=== PATIENT | male | born 1950 | race Caucasian/White ===

== ENCOUNTER → 2017-09-15 | Outpatient (CLI) | payer MEDICARE, OTHER ==
--- NOTE | 2017-09-15 11:20 | XR ---
EXAMINATION TYPE: XR femur LT DATE OF EXAM: 09/15/2017 COMPARISON: NONE HISTORY: Pain TECHNIQUE: 4 views submitted FINDINGS: Postsurgical changes noted there are vascular calcifications. Soft tissue calcification or ossification noted. Deformity of the distal femurs compatible with remote trauma or surgery. Arthropa thy of the knee joint. Arthropathy of the patellofemoral joint. Arthropathy of the hip joint. IMPRESSION: 1. Findings suggest previous trauma and surgery with no definite acute process.
== END | disposition home or self-care (01) ==
LOC: RADXRMAIN 10:41
PROVIDERS: ATTEND Physician Assistant
DX: S72.92XA Unspecified fracture of left femur, initial encounter for closed fracture (principal)

== ENCOUNTER 2019-11-09 08:14 | Observation (INO) | payer MEDICARE, OTHER ==
[2019-11-09] MEDS ORDERED: IPRATROPIUM 0.5 MG/2.5 ML NEBU INHALATION STA (08:40)
[2019-11-09] MEDS ORDERED: ALBUTEROL NEBULIZED 2.5 MG/3 ML INHALATION STA (08:40)
[2019-11-09] MEDS ORDERED: methylPREDNISolone SOD SUCCI 125 MG/2 ML VIAL IV STA (08:40)
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
[2019-11-09 09:12] LABS: HCT 39.7 % (39.0-53.0); HGB 13.5 gm/dL (13.0-17.5); MCH 31.5 pg (25.0-35.0); MCHC 34.1 g/dL (31.0-37.0); MCV 92.6 fL (80.0-100.0); Mean Platelet Volume 7.3; Platelet Count 184 k/uL (150-450); RBC 4.28 m/uL (4.30-5.90); RDW 13.7 % (11.5-15.5); WBC 5.2 k/uL (3.8-10.6)
[2019-11-09 09:14] LABS: INR 0.9 (<1.2); Partial Thromboplastin Time 25.7 sec (22.0-30.0); Prothrombin Time 9.6 sec (9.0-12.0)
[2019-11-09 09:19] LABS: Albumin 4.2 g/dL (3.5-5.0); Calcium 8.8 mg/dL (8.4-10.2); Magnesium 1.8 mg/dL (1.6-2.3); Potassium 4.6 mmol/L (3.5-5.1); Total Bilirubin 0.5 mg/dL (0.2-1.3); Total Protein 6.9 g/dL (6.3-8.2)
--- NOTE | 2019-11-09 09:23 | XR ---
EXAMINATION TYPE: XR chest 2V DATE OF EXAM: 11/09/2019 COMPARISON: Prior chest x-ray 04/26/2011 HISTORY: Difficulty breathing, shortness of breath TECHNIQUE: Frontal and lateral views of the chest are obtained. FINDINGS: Lung volumes are somewhat lower. There are overlying cardiac leads and the patient is rotat ed. Aorta is dense and likely ectatic. Apical pleural thickening is not significantly changed. There is no focal air space opacity, pleural effusion, or pneumothorax seen. The cardiac silhouette size is within normal limits. There are coronary artery calcifications. Prominent lung volumes suggest un derlying COPD. Mild prominence of interstitium. The osseous structures are intact, there is thoracic spondylosis. IMPRESSION: No acute cardiopulmonary process. Additional findings above.
[2019-11-09 09:31] LABS: Lymphocytes # (M) 1.87 k/uL (1.0-4.8); Monocytes # (M) 0.52 k/uL (0-1.0); Neutrophils % (M) 52 %; Nucleated Red Blood Cells 0 /100 WBC (0-0); Total Cells Counted 100
[2019-11-09 09:53] LABS: D-Dimer 0.71 mg/L FEU (<0.60)
[2019-11-09] MEDS ORDERED: IPRATROPIUM-ALBUTEROL 3 ML NEB INHALATION PRN (10:07)
[2019-11-09] MEDS ORDERED: SODIUM CHLORIDE 0.9% 1,000 ML IV SCH (10:15)
[2019-11-09] MEDS ORDERED: methylPREDNISolone SOD SUCCI 125 MG/2 ML VIAL IV SCH (12:00)
[2019-11-09] MEDS ORDERED: amLODIPine 5 MG TAB PO STA (12:24)
[2019-11-09] MEDS: IPRATROPIUM-ALBUTEROL 3 ML NEB INHALATION SCH ×3 (12:38→20:06)
--- NOTE | 2019-11-09 12:53 | NM ---
EXAMINATION TYPE: NM pul vent and perfuse DATE OF EXAM: 11/09/2019 COMPARISON: NONE HISTORY: Difficulty breathing, shortness of breath for 3 weeks TECHNIQUE: Utilizing inhalation of 33.8 mCi Tc 99m DTPA aerosol and intravenous injection of 5.2 mCi of Tc 99m MAA, ventilation and perfusion images are acquired post injection in multiple projections. FINDINGS: Normal radiotracer distribution is noted in the lungs. There is no evidence of mismatched defects. IMPRESSION: Normal ventilation/perfusion scan
[2019-11-09] MEDS ORDERED: PNEUMOCOCCAL VACC-PNEUMOVAX 23 25 MCG/0.5 ML VIAL IM ONE (15:15)
[2019-11-09] MEDS ORDERED: ACETAMINOPHEN TAB 325 MG TAB PO PRN (15:17)
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
[2019-11-09] MEDS ORDERED: INDOMETHACIN 25 MG CAP PO SCH (17:30)
[2019-11-09] MEDS: FAMOTIDINE 20 MG TAB PO SCH (19:56)
[2019-11-10 06:50] LABS: HCT 42.3 % (39.0-53.0); HGB 14.2 gm/dL (13.0-17.5); MCH 31.1 pg (25.0-35.0); MCHC 33.5 g/dL (31.0-37.0); MCV 92.9 fL (80.0-100.0); Mean Platelet Volume 7.4; Platelet Count 221 k/uL (150-450); RBC 4.55 m/uL (4.30-5.90); RDW 13.9 % (11.5-15.5); WBC 8.5 k/uL (3.8-10.6)
[2019-11-10 07:08] LABS: African American GFR (CKD) >90 (>60 ml/min/1.73 sqM); Anion Gap 6 mmol/L; Blood Urea Nitrogen 23 mg/dL (9-20); Calcium 9.4 mg/dL (8.4-10.2); Carbon Dioxide 23 mmol/L (22-30); Chloride 104 mmol/L (98-107); Glucose 136 mg/dL (74-99); Non-African American GFR(CKD) 78 (>60 ml/min/1.73 sqM); Sodium 133 mmol/L (137-145)
[2019-11-10] MEDS: IPRATROPIUM-ALBUTEROL 3 ML NEB INHALATION SCH ×2 (08:54→12:35)
[2019-11-10] MEDS: HEPARIN SODIUM,PORCINE 5,000 UNIT/ML 1 ML VIAL SQ SCH ×2 (08:57)
[2019-11-10] MEDS: FAMOTIDINE 20 MG TAB PO SCH (08:58)
[2019-11-10] MEDS ORDERED: TAMSULOSIN 0.4 MG CAP.ER.24H PO SCH (09:00)
[2019-11-10] MEDS ORDERED: predniSONE 20 MG TAB PO SCH (09:00)
[2019-11-10] MEDS ORDERED: ASPIRIN 325 MG TAB PO SCH (09:00)
[2019-11-10 10:50] VITALS: RESP 20
[2019-11-10] MEDS ORDERED: METOPROLOL TARTRATE 25 MG TAB PO SCH (11:00)
--- NOTE | 2019-11-10 11:04 | P.DS ---
Providers Date of admission: 11/09/19 10:07 Attending physician: Randolph Monahan Primary care physician: Allison Parker [facility] Course: Patient is a pleasant 68-year-old male with past medical history of COPD quit smoking about a month ago came in with compensative shortness of breath and cough without any sputum production. Patient had any fever chills associated nausea pneumonia patient had a VQ scan which did not show any pulmonary embolism. Patient also has acute renal failure with creatinine of around 1.26 baseline creatinine is not available. Patient blood pressure is bit elevated as well. 11/10/2019 Patient's Tay doing well patient heart rate is elevated TSH is within normal limits there is no PE. Patient creatinine returned to normal. Serum sodium improved. Patient will be discharged todaythe patient will be given prescription for metoprolol for his heart rate PHYSICAL EXAMINATION: GENERAL: The patient is alert and oriented x3, not in any acute distress. Well developed, well nourished. HEENT: Pupils are round and equally reacting to light. EOMI. No scleral icterus. No conjunctival pallor. Normocephalic, atraumatic. No pharyngeal erythema. No thyromegaly. CARDIOVASCULAR: S1 and S2 present. No murmurs, rubs, or gallops. PULMONARY: Chest is clear to auscultation, no wheezing or crackles. ABDOMEN: Soft, nontender, nondistended, normoactive bowel sounds. No palpable organomegaly. MUSCULOSKELETAL: No joint swelling or deformity. EXTREMITIES: No cyanosis, clubbing, or pedal edema. NEUROLOGICAL: Gross neurological examination did not reveal any focal deficits. SKIN: No rashes. Assessment and Plan Plan: -Shortest breathsecondary to COPD exacerbation improved -Hyperemic hyponatremia improved with IV fluids -Anion gap metabolic acidosis secondary to renal failure.improved -Acute renal failure renal azotemia improved with IV fluids. -gastroesophageal reflux disease probable essential hypertension -Benign prostatic atrophy -History of seizures in the past last seizure in 1970 Patient Condition at Discharge: Stable Plan - Discharge Summary Discharge Rx Participant: No New Discharge Prescriptions: New Metoprolol Tartrate [Lopressor] 25 mg PO BID #60 tab Famotidine [Pepcid] 20 mg PO BID #30 tablet predniSONE 10 mg PO DAILY #30 tab Tiotropium Purcell [Spiriva] 1 cap INHALATION DAILY #1 device Budesonide-Formot 160-4.5 Mcg [Symbicort 160-4.5 Mcg Inhaler] 2 puff INHALATION BID #1 inhaler Continue Aspirin 162.5 mg PO DAILY Tamsulosin [Flomax] 0.4 mg PO DAILY Indomethacin [Indocin] 50 mg PO TID-W/MEALS Albuterol Sulfate [Ventolin HFA] 1 - 2 puff INHALATION RT-Q6H PRN PRN Reason: Shortness Of Breath Cider Vinegar [Apple Cider Vinegar] 300 mg PO DAILY Discharge Medication List Albuterol Sulfate [Ventolin HFA] 1 - 2 puff INHALATION RT-Q6H PRN 11/09/19 [History] Aspirin 162.5 mg PO DAILY 11/09/19 [History] Cider Vinegar [Apple Cider Vinegar] 300 mg PO DAILY 11/09/19 [History] Indomethacin [Indocin] 50 mg PO TID-W/MEALS 11/09/19 [History] Tamsulosin [Flomax] 0.4 mg PO DAILY 11/09/19 [History] Budesonide-Formot 160-4.5 Mcg [Symbicort 160-4.5 Mcg Inhaler] 2 puff INHALATION BID #1 inhaler 11/10/19 [Rx] Famotidine [Pepcid] 20 mg PO BID #30 tablet 11/10/19 [Rx] Metoprolol Tartrate [Lopressor] 25 mg PO BID #60 tab 11/10/19 [Rx] Tiotropium Purcell [Spiriva] 1 cap INHALATION DAILY #1 device 11/10/19 [Rx] predniSONE 10 mg PO DAILY #30 tab 11/10/19 [Rx] Follow up Appointment(s)/Referral(s): Seth Cooper MD [Primary Care Provider] - 3 Days Manuel Chanel MD [STAFF PHYSICIAN] - 1 Week Patient Instructions/Handouts: COPD (Chronic Obstructive Pulmonary Disease) (DC), COPD (Chronic Obstructive Pulmonary Disease) (GEN) Discharge Disposition: HOME SELF-CARE
[2019-11-10 13:35] VITALS: BP 158/67; PULSE 90; TEMP 96
== END 2019-11-10 13:38 | disposition home or self-care (01) ==
LOC: EC 08:14 → 3SCARD 10:07 → INTOOBSV 10:07 → 3SCARD 11:46
PROVIDERS: ADMIT Hospitalist; ATTEND Hospitalist
DX: J44.1 Chronic obstructive pulmonary disease with (acute) exacerbation (principal); Z03.818 Encounter for observation for suspected exposure to other biological agents ruled out; E87.1 Hypo-osmolality and hyponatremia; E87.2 Acidosis; N17.9 Acute kidney failure, unspecified; G40.909 Epilepsy, unspecified, not intractable, without status epilepticus; K21.9 Gastro-esophageal reflux disease without esophagitis; N40.0 Benign prostatic hyperplasia without lower urinary tract symptoms; R13.10 Dysphagia, unspecified; Z79.82 Long term (current) use of aspirin; Z79.899 Other long term (current) drug therapy; Z80.3 Family history of malignant neoplasm of breast; Z82.0 Family history of epilepsy and other diseases of the nervous system; Z87.891 Personal history of nicotine dependence; G89.29 Other chronic pain; M54.5 Low back pain; M79.604 Pain in right leg; M79.605 Pain in left leg; M10.9 Gout, unspecified
CPT/HCPCS: 96372; 96374; 99285; 36415; 94640; 94760; 93005; 85379; 83880; 80053; 80048; 84443; 83605; 83735; 84484; 85025; 85027; 85610; 85730; 71046; 78582; G0378 ×2; U0003; A9540; A9567; J1644; J2930; J7512

== ENCOUNTER 2021-03-07 02:19 | Emergency (ER) | payer MEDICARE, OTHER ==
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
[2021-03-07 03:03] VITALS: BP 118/74; PULSE 84; RESP 18; TEMP 98.1
[2021-03-07] MEDS ORDERED: IBUPROFEN 600 MG STARTER PACK 4 TAB BTL PO STA (03:19)
[2021-03-07] MEDS ORDERED: ACET/COD 300 MG/30 MG STARTER PACK 6 TAB BTL PO STA (03:19)
[2021-03-07] MEDS ORDERED: IBUPROFEN 800 MG TAB PO STA (03:19)
[2021-03-07] MEDS ORDERED: Acetaminophen-Codeine 300-30mg TAB PO STA (03:19)
--- NOTE | 2021-03-07 03:21 | XR ---
EXAMINATION TYPE: XR chest 1V DATE OF EXAM: 03/07/2021 COMPARISON: 11/09/2019 HISTORY: Chest pain TECHNIQUE: Single view FINDINGS: There is no heart failure nor confluent pneumonic infiltrate. Thoracic aorta is atheromatou s. Heart size is normal. Costophrenic angles are clear. Bony thorax is intact. IMPRESSION: No active cardiopulmonary disease. No change.
--- NOTE | 2021-03-07 03:25 | XR ---
EXAMINATION TYPE: XR shoulder complete LT DATE OF EXAM: 03/07/2021 COMPARISON: Rib x-ray exam 04/26/2011 and chest x-ray 11/09/2019 HISTORY: Shoulder pain TECHNIQUE: 3 views FINDINGS: I see no acute fracture nor dislocation. There is some fragmentation on the lateral and of the clavicle there is consistent with an old fracture. Glenohumeral joint is intact. There is some mi ld periarticular calcification. There is malalignment of the AC joint. There is approximate 13 mm inf erior displacement of the acromion. IMPRESSION: There is evidence of ligamentous tear at the AC joint. No acute fracture seen. There is e vidence of old chip fractures of the lateral and of the clavicle. This abnormality appears new compar ed to old exam.
== END 2021-03-07 03:55 | disposition home or self-care (01) ==
LOC: EC 02:19
DX: S43.102A Unspecified dislocation of left acromioclavicular joint, initial encounter (principal); I10 Essential (primary) hypertension; J44.9 Chronic obstructive pulmonary disease, unspecified; K21.9 Gastro-esophageal reflux disease without esophagitis; G40.909 Epilepsy, unspecified, not intractable, without status epilepticus; Z79.82 Long term (current) use of aspirin; Z79.52 Long term (current) use of systemic steroids; Z79.51 Long term (current) use of inhaled steroids; Z79.899 Other long term (current) drug therapy; Z87.891 Personal history of nicotine dependence; W19.XXXA Unspecified fall, initial encounter
CPT/HCPCS: 71045; 99284

== ENCOUNTER → 2024-08-09 | Outpatient (CLI) | payer MEDICARE, OTHER ==
--- NOTE | 2024-08-09 14:44 | CTL ---
EXAMINATION TYPE: CT Low Dose Lung DATE OF EXAM ORDERED: 08/09/2024 COMPARISON: CLINICAL INDICATION: Male, 73 years old with history of Z12.2 LUNG CA SCR Z87.891 FORMER SMOKER; [facility], lung CA screening, stopped smoking 3 years ago, Lung cancer screening, History of Smoking/tobacco us e. TECHNIQUE: Low dose computed tomography scan was performed through the chest at 1 mm thick sections a nd reconstructed images in multiple planes at 1 mm and [address] DLP: [address] CTDI: 2.33 mGy Automated exposure control for dose reduction was used. CT DIAGNOSTIC QUALITY: Satisfactory EXAMINATION TYPE: CT Low Dose Lung DATE OF EXAM ORDERED: 08/09/2024 CLINICAL INDICATION: Male, 73 years old with history of Z12.2 LUNG CA SCR Z87.891 FORMER SMOKER, hist ory of tobacco use, Lung cancer screening CT DLP: [address] CTDI: 2.33 mGy Automated exposure control for dose reduction was used. Comparison: None TECHNIQUE: Low dose computed tomography scan was performed through the chest at 1 mm thick sections a nd reconstructed images in multiple planes at 1 mm and [address] DIAGNOSTIC QUALITY: Satisfactory FINDINGS: There are 2 micronodules in the right lung. There is no suspicious lung mass or nodule. The lungs are clear and there is no abnormal airspace consolidation or interstitial density. There is no mediastinal, hilar or axillary adenopathy. There is no pleural effusion, pleural thickening or pneumothorax. No focal osseous lesions are seen. Limited scans the upper abdomen reveals no gross abnormality IMPRESSION: 1. Lung rads Category 2 benign. Continue routine screening at yearly intervals. 2. No acute cardiopulmonary disease. [facility], , 08/09/2024 2:42 PM
== END | disposition home or self-care (01) ==
LOC: RADCTMAIN 13:15
PROVIDERS: ATTEND Internal Medicine
DX: Z12.2 Encounter for screening for malignant neoplasm of respiratory organs (principal); Z87.891 Personal history of nicotine dependence
CPT/HCPCS: 71271

== ENCOUNTER → 2024-09-14 | Outpatient (CLI) | payer MEDICARE, OTHER ==
--- NOTE | 2024-09-14 14:21 | US ---
EXAMINATION TYPE: US carotid duplex BILAT DATE OF EXAM: 09/14/2024 COMPARISON: NONE CLINICAL INDICATION: Male, 73 years old with history of I65.29 CAROTID STENOSIS I34.0 RICARDO MIN REGUR; Neuropathy; Former smoker x 3 years Additional History: .... TECHNIQUE: Grayscale, color Doppler and spectral Doppler evaluation of the bilateral carotid systems and vertebral arteries. Indirect Doppler criteria was utilized. FINDINGS: EXAM MEASUREMENTS: RIGHT: Peak Systolic Velocity (PSV) cm/sec ----- Right CCA: 28 ----- Right ICA: 98 ----- Right ECA: 57 ICA/CCA ratio: 3.5 RIGHT: End Diastole cm/sec ----- Right CCA: 9 ----- Right ICA: 35 ----- Right ECA: 16 LEFT: Peak Systolic Velocity (PSV) cm/sec ----- Left CCA: 50 ----- Left ICA: 117 ----- Left ECA: 297 ICA/CCA ratio: 2.3 LEFT: End Diastole cm/sec ----- Left CCA: 16 ----- Left ICA: 39 ----- Left ECA: 25 VERTEBRALS (direction of flow): Right Vertebral: Antegrade Left Vertebral: Antegrade Rhythm: Arrhythmia LOG WASHER NOTES: Calcified plaque seen throughout bilateral CCA extending into the ICAs and ECAs. Color Doppler imaging shows patency with blood flow throughout the carotid artery. Spectral waveforms are within normal limits. IMPRESSION: Right: 50-69% stenosis of the carotid bifurcation by ratio. Left: 50-69% stenosis of the carotid bifurcation by ratio Criteria for Assigning % of Stenosis / Diameter reduction (Estimation based on the indirect measurements of the internal carotid artery velocities (ICA PSV). 1. Normal (no stenosis)=ICA PSV < 180 cm/s: ratio < 2.0: ICA EDV<40 cm/s. 2. Less than 50% stenosis=ICA PSV < 180 cm/s: ratio < 2.0: ICA EDV<40 cm/s. 3. 50 to 69% stenosis=ICA PSV of 180 to 230 cm/s: ration 2.0 ? 4.0: ICA EDV 40-100 cm/s. PSV 125-180 cm/sec and ICA/CCA PSV Ratio ? 2.0 is also consistent with 50-69% stenosis 4. Greater than 70% stenosis to near occlusion= ICA PSV > 230 cm/s: ratio > 4.0: ICA EDV > 100 cm/s. 5. Near occlusion= ICA PSV velocities may be low or undetectable: variable ratio and ICA EDV. 6. Total occlusion=unable to detect flow. [facility], , 09/14/2024 2:19 PM
--- NOTE | 2024-09-14 16:50 | CA ---
Transthoracic Echo Report Name: Isaias Gee Age: 73 Gender: M : 1950 Exam Date: 09/14/2024 14:23 Exam Location: [facility] Ht (in): 69 Wt (lb): 212 Ordering Physician: Tiffani Santiago MD Attending/Referring Phys: Inventory Associate Neema Miller RDCS Procedure CPT: Indications: I65.29 CAROTID STENOSIS I34.0 RICARDO MIN REGUR Cardiac Hx: Technical Quality: Poor Contrast 1: Total Dose (mL): Contrast 2: Total Dose (mL): MEASUREMENTS (Male / Female) Normal Values 2D ECHO LV Diastolic Diameter PLAX 4.4 cm 4.2 - 5.9 / 3.9 - 5.3 cm LV Systolic Diameter PLAX 3.5 cm IVS Diastolic Thickness 1.1 cm 0.6 - 1.0 / 0.6 - 0.9 cm LVPW Diastolic Thickness 1.0 cm 0.6 - 1.0 / 0.6 - 0.9 cm LV Relative Wall Thickness 0.5 LVOT Diameter 2.1 cm Aortic Root Diameter 3.1 cm LV Diastolic Volume MOD BP 106.7 cm??? 67 - 155 / 56 - 104 cm??? LV Systolic Volume MOD BP 70.5 cm??? 22 - 58 / 19 - 49 cm??? LV Ejection Fraction MOD BP 33.9 % >= 55 % LV Cardiac Index MOD BP 1551.0 cm???/min???m??? LV Diastolic Volume MOD 4C 111.4 cm??? LV Systolic Volume MOD 4C 73.3 cm??? LV Ejection Fraction MOD 4C 34.2 % LV Cardiac Index MOD 4C 1632.9 cm???/min???m??? LV Diastolic Length 4C 7.9 cm LV Systolic Length 4C 7.6 cm LV Diastolic Volume MOD 2C 102.2 cm??? LV Systolic Volume MOD 2C 59.2 cm??? LV Ejection Fraction MOD 2C 42.0 % LV Cardiac Index MOD 2C 1842.5 cm???/min???m??? LV Diastolic Length 2C 7.8 cm LV Systolic Length 2C 6.6 cm LA Volume 42.8 cm??? 18 - 58 / 22 - 52 cm??? LA Volume Index 19.5 cm???/m??? 16 - 28 cm???/m??? Ascending Aorta Diameter 3.4 cm DOPPLER AV Peak Velocity 224.1 cm/s AV Peak Gradient 20.1 mmHg AV Mean Velocity 169.1 cm/s AV Mean Gradient 12.6 mmHg AV Velocity Time Integral 48.8 cm LVOT Peak Velocity 90.1 cm/s LVOT Peak Gradient 3.2 mmHg LVOT Velocity Time Integral 19.1 cm LVOT Stroke Volume 64.0 cm??? LVOT Stroke Volume Index 30.2 ml/m??? LVOT Cardiac Index 2746.0 cm???/min???m??? AV Area Cont Eq vti 1.3 cm??? AV Area Cont Eq pk 1.3 cm??? MV Area PHT 7.2 cm??? Mitral E Point Velocity 65.9 cm/s Mitral A Point Velocity 92.3 cm/s Mitral E to A Ratio 0.7 MV Deceleration Time 104.8 ms PV Peak Velocity 108.5 cm/s PV Peak Gradient 4.7 mmHg FINDINGS Left Ventricle Left ventricular ejection fraction is estimated at 40-45 per %. Mildly increased left ventricular systolic volume. Moderately decreased left ventricular ejection fraction with regional variability. Left ventricular wall thickness normal. Right Ventricle Normal right ventricular size and function. Unable to estimate the right ventricular systolic pressure. Right Atrium Normal right atrial size. Left Atrium Normal left atrial size. Mitral Valve Structurally normal mitral valve. Mitral annular calcification. No evidence for mitral valve prolapse. No mitral stenosis. Trace mitral regurgitation. Aortic Valve Trileaflet aortic valve. Diffuse thickening of the aortic valve cusps with reduced excursion. Mild aortic stenosis. Trace aortic regurgitation. Tricuspid Valve Structurally normal tricuspid valve. No tricuspid stenosis, regurgitation or prolapse. Pulmonic Valve Structurally normal pulmonic valve. No pulmonic stenosis. No pulmonic regurgitation. Pericardium No pericardial effusion. Aorta Normal size aortic root and proximal ascending aorta. CONCLUSIONS Left ventricle size is normal mild concentric LVH overall global decrease in contractility estimate ejection fraction of 40 to 45%. Aortic valve has sclerosis restriction calcification. Doppler interrogation was suboptimal appears to be mild stenosis but could be moderate. There is minimal aortic regurgitation. Mild mitral and tricuspid regurgitation no pericardial effusion. Right-sided pressures are not well quantified. This is a overall poor quality study. Patient was not cooperative did not Elave the study to be completed and therefore it is a suboptimal study. If study needs to be repeated for a clinical reason it should be rescheduled and patient compliance should be ensured Previewed by: Dr. Mitch Morley MD (Electronically Signed) Final Date: 14 Sep 2024 16:49
== END | disposition home or self-care (01) ==
LOC: RADUSWWP 13:26
PROVIDERS: ATTEND Internal Medicine
DX: I65.23 Occlusion and stenosis of bilateral carotid arteries (principal); I08.2 Rheumatic disorders of both aortic and tricuspid valves
CPT/HCPCS: 93306; 93880

== ENCOUNTER → 2024-10-05 | Outpatient (CLI) | payer MEDICARE, OTHER ==
--- NOTE | 2024-10-27 13:10 | P.CEMON ---
14 DAY EVENT MONITOR REPORT: INDICATION: TIA, CVA, bilateral carotid stenosis START DATE: 10/05/2024 END DATE: 10/21/2024 Patient wore the monitor for 13 days 18 hours FINDINGS: Max HR 152 bpm Mean HR 47 bpm Average HR 93 bpm Occasional PVCs and PACs noticed during the study.. Less than 1% PAC and PVC burden There were no observed atrial fibrillation, atrial flutter or sustained ventricular rhythm. There were no observed sinus pauses which were more than 2 second long. Patient symptoms correlation: Patient reported symptoms of shortness of breath, palpitations, and the symptoms corresponded to sinus rhythm and sinus tachycardia with max HR of 108 bpm. Conclusion Overall nonrevealing cardiac event monitor. Please correlate clinically If clinical suspicion of subclinical atrial fibrillation is high, consider longer-term rhythm monitoring Rey Saldivar MD, FACC, RPVI Thank you for allowing [facility] to participate in this patient's care. Feel free to reach out in case of any followup questions.
--- NOTE | 2024-10-29 11:01 | EM ---
14 DAY EVENT MONITOR REPORT: INDICATION: TIA, CVA, bilateral carotid stenosis START DATE: 10/05/2024 END DATE: 10/21/2024 Patient wore the monitor for 13 days 18 hours FINDINGS: Max HR 152 bpm Mean HR 47 bpm Average HR 93 bpm Occasional PVCs and PACs noticed during the study.. Less than 1% PAC and PVC burden There were no observed atrial fibrillation, atrial flutter or sustained ventricular rhythm. There were no observed sinus pauses which were more than 2 second long. Patient symptoms correlation: Patient reported symptoms of shortness of breath, palpitations, and the symptoms corresponded to sinus rhythm and sinus tachycardia with max HR of 108 bpm. Conclusion Overall nonrevealing cardiac event monitor. Please correlate clinically. If clinical suspicion of subclinical atrial fibrillation is high, consider longer-term rhythm monitoring. MTDD
== END | disposition home or self-care (01) ==
LOC: RADECHMAIN 12:41
PROVIDERS: ATTEND Internal Medicine
DX: G45.9 Transient cerebral ischemic attack, unspecified (principal)
CPT/HCPCS: 93270

== ENCOUNTER 2024-10-11 03:45 | Emergency (ER) | payer MEDICARE, OTHER ==
[2024-10-11 04:25] LABS: Basophils # (A) 0.01 10*3/uL (0.00-0.10); Basophils % (A) 0.2 %; Eosinophils # (A) 0.17 10*3/uL (0.04-0.35); Eosinophils % (A) 2.8 %; HCT 42.2 % (39.6-50.0); HGB 14.3 g/dL (13.0-17.0); Lymphocytes # (A) 2.32 10*3/uL (0.90-5.00); Lymphocytes % (A) 38.2 %; MCH 30.6 pg (27.0-32.0); MCHC 33.9 g/dL (32.0-37.0); MCV 90.2 fL (80.0-97.0); Mean Platelet Volume 10.4 fL (9.5-12.2); Monocytes # (A) 0.96 10*3/uL (0.20-1.00); Monocytes % (A) 15.8 %; Neutrophils # (A) 2.61 10*3/uL (1.80-7.70); Neutrophils % (A) 42.8 %; Platelet Count 203 10*3/uL (140-440); RBC 4.68 10*6/uL (4.40-5.60); RDW 13.4 % (11.5-14.5); WBC 6.08 10*3/uL (4.50-10.00)
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
[2024-10-11 04:43] LABS: Partial Thromboplastin Time 25.8 sec (22.0-30.0); Prothrombin Time 10.9 sec (10.0-12.5)
[2024-10-11 04:57] LABS: ALT 28 U/L (4-49); AST 48 U/L (17-59); African American GFR (CKD) >90 (>60 ml/min/1.73 sqM); Albumin 4.6 g/dL (3.5-5.0); Alkaline Phosphatase 38 U/L (38-126); Anion Gap 12 mmol/L; Blood Urea Nitrogen 17 mg/dL (9-20); C Reactive Protein 0.5 mg/dL (<1.0); Calcium 9.6 mg/dL (8.4-10.2); Carbon Dioxide 23 mmol/L (22-30); Chloride 93 mmol/L (98-107); Glucose 84 mg/dL (74-99); Magnesium 1.4 mg/dL (1.6-2.3); Non-African American GFR(CKD) 88 (>60 ml/min/1.73 sqM); Sodium 128 mmol/L (137-145); Total Bilirubin 1.3 mg/dL (0.2-1.3); Total Protein 7.8 g/dL (6.3-8.2)
[2024-10-11 05:15] LABS: Potassium 5.5 mmol/L (3.5-5.1)
--- NOTE | 2024-10-11 08:01 | CT ---
EXAM: CT Head Without Intravenous Contrast CLINICAL HISTORY: ITS.REASON CT Reason: dizzy, vision loss TECHNIQUE: Axial computed tomography images of the head/brain without intravenous contrast. CTDI is 49.2 mGy and DLP is 1347.3 mGy-cm. This CT exam was performed using one or more of the following dose reduction techniques: automated exposure control, adjustment of the mA and/or kV according to patient size, and/or use of iterative reconstruction technique. COMPARISON: No relevant prior studies available. FINDINGS: Brain: Hypodense changes are seen within the periventricular and deep white matter. No hemorrhage. Ventricles: Symmetric widening of the ventricles and sulci without evidence of midline shift or hydrocephalus. Bones/joints: Unremarkable. No acute fracture. Soft tissues: Unremarkable. Sinuses: Unremarkable as visualized. No acute sinusitis. Mastoid air cells: Unremarkable as visualized. No mastoid effusion. IMPRESSION: No acute intracranial findings. No intracranial hemorrhage.
--- NOTE | 2024-10-11 08:05 | XR ---
EXAMINATION TYPE: XR chest 1V portable DATE OF EXAM: 10/11/2024 6:23 AM COMPARISON: 03/07/2021 CLINICAL INDICATION: Male, 73 years old with history of dyspnea, TECHNIQUE: XR chest 1V portable view(s) obtained. FINDINGS: The heart size is normal. The pulmonary vasculature is normal. The lungs are clear. IMPRESSION: 1. No acute pulmonary process. [facility], , 10/11/2024 8:03 AM
[2024-10-11] MEDS: MAGNESIUM OXIDE 400 MG TAB PO STA (08:43)
[2024-10-11] MEDS: SODIUM CHLORIDE 0.9% 500 ML 500 ML IV ONE (08:44)
[2024-10-11 10:24] VITALS: BP 151/86; PULSE 88; RESP 20; TEMP 98.3
[2024-10-11 11:07] LABS: Erythrocyte Sedimentation Rate 39 mm/Hr (0-20)
== END 2024-10-11 10:25 | disposition home or self-care (01) ==
LOC: EC 03:45
DX: E83.42 Hypomagnesemia (principal); E87.1 Hypo-osmolality and hyponatremia; H53.122 Transient visual loss, left eye; I10 Essential (primary) hypertension; E11.9 Type 2 diabetes mellitus without complications
CPT/HCPCS: 36415; 70450; 71045; 80053; 83605; 83735; 84484; 85025; 85610; 85652; 85730; 86140; 93005; 96360; 99285

== ENCOUNTER 2024-11-07 13:57 | Emergency (ER) | payer MEDICARE, OTHER ==
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
[2024-11-07 15:07] LABS: ALT 26 U/L (4-49); AST 31 U/L (17-59); African American GFR (CKD) >90 (>60 ml/min/1.73 sqM); Albumin 4.2 g/dL (3.5-5.0); Alkaline Phosphatase 52 U/L (38-126); Anion Gap 12 mmol/L; Blood Urea Nitrogen 18 mg/dL (9-20); Calcium 9.3 mg/dL (8.4-10.2); Carbon Dioxide 22 mmol/L (22-30); Chloride 94 mmol/L (98-107); Glucose 81 mg/dL (74-99); Magnesium 1.6 mg/dL (1.6-2.3); Non-African American GFR(CKD) 84 (>60 ml/min/1.73 sqM); Potassium 4.8 mmol/L (3.5-5.1); Sodium 128 mmol/L (137-145); Total Protein 6.9 g/dL (6.3-8.2)
[2024-11-07 15:09] LABS: INR 0.9 (<1.2); Partial Thromboplastin Time 26.6 sec (22.0-30.0); Prothrombin Time 10.5 sec (10.0-12.5)
[2024-11-07 15:15] LABS: NT-Pro-B-Type Natriuretic Pept 169 pg/mL
[2024-11-07] MEDS: IPRATROPIUM-ALBUTEROL 3 ML NEB INHALATION STA (15:48)
[2024-11-07 15:52] LABS: Basophils # (A) 0.02 10*3/uL (0.00-0.10); Basophils % (A) 0.4 %; Eosinophils # (A) 0.18 10*3/uL (0.04-0.35); Eosinophils % (A) 3.4 %; HCT 39.2 % (39.6-50.0); HGB 13.3 g/dL (13.0-17.0); Lymphocytes # (A) 2.19 10*3/uL (0.90-5.00); Lymphocytes % (A) 40.9 %; MCH 30.4 pg (27.0-32.0); MCHC 33.9 g/dL (32.0-37.0); MCV 89.5 fL (80.0-97.0); Monocytes # (A) 0.73 10*3/uL (0.20-1.00); Monocytes % (A) 13.6 %; Neutrophils # (A) 2.23 10*3/uL (1.80-7.70); Neutrophils % (A) 41.5 %; Platelet Count 211 10*3/uL (140-440); RBC 4.38 10*6/uL (4.40-5.60); RDW 13.5 % (11.5-14.5); WBC 5.36 10*3/uL (4.50-10.00)
--- NOTE | 2024-11-07 16:31 | CT ---
EXAMINATION TYPE: CT angio chest DATE OF EXAM: 11/07/2024 4:22 PM COMPARISON: Chest radiograph from same day. 08/09/2024. CLINICAL INDICATION: Male, 73 years old with history of arely; arely TECHNIQUE/CONTRAST: CTA scan of the thorax is performed with IV Contrast, patient injected with 100 ml mL of Isovue 370, MIP images are created and reviewed these are created on a separate workstation.. CT DLP: 580.5 mGycm, Automated exposure control for dose reduction was used. FINDINGS: Lungs/Pleura: Elevated left diaphragm with atelectasis in the bilateral lung bases. No evidence of fo greg consolidation, pleural effusion or pneumothorax. Airway: Large airways are patent. Heart: Size within normal limits. Moderate coronary artery calcifications present. Thickening and ca lcification of aortic valve present. Vasculature: There is no evidence for a filling defect within the pulmonary vasculature to suggest ac [place] pulmonary embolism. The pulmonary artery is of normal size. Mediastinum: No gross evidence of adenopathy. Musculoskeletal: Moderate disc degeneration changes are present throughout the thoracolumbar spine se condary to osteophyte formation and facet joint arthropathy. Soft Tissues/lymph nodes: Unremarkable. Lower neck: No significant findings. Upper Abdomen: No significant findings. IMPRESSION: 1. No evidence of pulmonary embolism. 2. Elevated left diaphragm correlate for phrenic nerve injury. 3. Hepatic steatosis. 4. Moderate coronary artery atherosclerosis. 5. Mild to moderate aortic valve calcifications. Follow up recommendations for incidental pulmonary nodules, if there are any, are per [employer] [employer] or [place]. https://radiopaedia.org/articles/hxgiyucekf-anipudt-ulzsuuvzp-hegbzv-[email or web address]?lang=us [facility], , 11/07/2024 4:29 PM
[2024-11-07 18:49] VITALS: BP 112/68; PULSE 86; RESP 18; TEMP 98.4
== END 2024-11-07 19:23 | disposition home or self-care (01) ==
LOC: EC 13:57
DX: R06.00 Dyspnea, unspecified (principal); Z87.891 Personal history of nicotine dependence
CPT/HCPCS: 36415; 94640; 93005; 85379; 83880; 80053; 83605; 83735; 84484; 85025; 85610; 85730; 71275; 99285; Q9967